=== PATIENT | female | born 1950 | race Caucasian/White ===

== ENCOUNTER 2018-01-18 14:45 | Emergency (ER) | payer OTHER, MEDICAID ==
[~2018-01-18] VITALS: Ht 167.6 cm; Wt 83.0 kg
[~2018-01-18 14:45] MED LIST: ALPRAZOLAM XR2 MG PO; CIPROFLOXACIN500 M1 PO; COZAAR 50 MG TA50 M2 PO; CYMBALTA60 MG PO; GABAPENTIN 100100 MG; HYDROXYZINE HCL10 M1 PO; HYDROXYZINE HCL25 M1 PO; IBUPROFEN 600600 M1 PO; LIPITOR 20 MG T20 M1; LIPITOR 20 MG T20 M1 PO; LISINOPRIL10 MG; METHIMAZOLE10 MG PO; NEURONTIN 300300 M1 PO; OMEPRAZOLE 20 M20 MG PO; OMEPRAZOLE20 M2; ONDANSETRON HCL4 M2 PO; PHENAZOPYRIDIN200 M2 PO; TRAMADOL 50 MG50 MG; VENLAFAXIN37.5 MG/1; XANAX 0.5 MG0.5 MG PO
[2018-01-18 16:35] LABS: HEMATOCRIT 40.2 % (37.0-47.0); HEMOGLOBIN 13.5 gm/dL (12.0-15.0); MCH 31.6 pg (26.0-34.0); MCHC 33.7 g/dL (28.0-37.0); MCV 93.8 fL (80.0-100.0); MPV 9.8 fl. (7.2-11.1); RBC 4.29 mil/uL (4.20-5.00); WBC 4.9 thou/uL (4.0-11.0)
[2018-01-18 16:43] LABS: CALCIUM 8.9 mg/dL (8.5-10.1); CREATININE 1.1 mg/dL (0.6-1.3); POTASSIUM 3.8 mmol/L (3.5-5.1)
[2018-01-18 16:47] LABS: ALBUMIN 3.5 g/dL (3.4-5.0); TOTAL BILIRUBIN 0.3 mg/dL (<0.1-1.0); TOTAL PROTEIN 7.1 g/dL (6.4-8.2)
[2018-01-18 16:58] LABS: URINE BILIRUBIN NEGATIVE (Negative); URINE BLOOD 2+ (Negative); URINE CLARITY SL CLOUDY; URINE COLOR YELLOW; URINE GLUCOSE-RANDOM NEGATIVE (Negative); URINE KETONES NEGATIVE (Negative); URINE LEUKOCYTES-REFLEX 2+ (Negative); URINE NITRITE-REFLEX NEGATIVE (Negative); URINE PROTEIN NEGATIVE (Negative); URINE SPECIFIC GRAVITY >= 1.030 (1.005-1.030); URINE UROBILINOGEN 0.2 E.U./dl (0.2-1.0)
[2018-01-18 16:59] LABS: AMP/METHAMP Negative (Negative); BARBITURATES Negative (Negative); BENZODIAZEPINES Negative (Negative); COCAINE Negative (Negative); METHADONE Negative (Negative); OPIATES Negative (Negative); PCP Negative (Negative); SQUAMOUS 0-3 Few /LPF (0-3); THC Negative (Negative); URINE WBC-REFLEX 0-5 Rare /HPF (0-5)
[2018-01-18 17:00] LABS: URINE RBC 3-10 Few /HPF (0-2)
[2018-01-18] MEDS ORDERED: XANAX XR2 MG PO (18:12)
[2018-01-18] MEDS ORDERED: KEFLEX500 M1 PO (18:12)
[2018-01-18 18:34] VITALS: BP 186/99
== END 2018-01-18 18:34 | disposition home or self-care (01) ==
LOC: M.ERS 14:45
PROVIDERS: Personal Emergency Response Attendant
DX: N39.0 Urinary tract infection, site not specified (principal); F13.239 Sedative, hypnotic or anxiolytic dependence with withdrawal, unspecified; N18.2 Chronic kidney disease, stage 2 (mild); Z88.5 Allergy status to narcotic agent; Z88.6 Allergy status to analgesic agent; Z88.2 Allergy status to sulfonamides; Z90.49 Acquired absence of other specified parts of digestive tract; Z86.73 Personal history of transient ischemic attack (TIA), and cerebral infarction without residual deficits; Z79.899 Other long term (current) drug therapy

== ENCOUNTER 2018-08-28 21:08 | Inpatient (IN) | payer OTHER, MEDICAID ==
[~2018-08-28] VITALS: Ht 167.6 cm; Wt 90.8 kg
[~2018-08-28 21:08] MED LIST changes: -COZAAR 50 MG TA50 M2 PO; +COZAAR 50 MG TA50 MG PO; +KEFLEX500 M1 PO; +OMEPRAZOLE 20 M20 M1 PO; -OMEPRAZOLE 20 M20 MG PO; +XANAX XR2 MG PO
[2018-08-28 21:09] VITALS: BP 113/68
[2018-08-28 21:38] LABS: ABSOLUTE EOSINOPHILS 0.3 thou/uL (0.0-0.7); ABSOLUTE MONOCYTES 0.5 thou/uL (0.0-1.2); ABSOLUTE NEUTROPHILS 2.6 thou/uL (1.6-8.1); BASOPHILS 0.6 %; EOSINOPHILS 5.3 %; HEMATOCRIT 38.1 % (37.0-47.0); HEMOGLOBIN 12.9 gm/dL (12.0-15.0); LYMPHOCYTES 36.4 %; MCH 31.7 pg (26.0-34.0); MCHC 33.8 g/dL (28.0-37.0); MCV 93.9 fL (80.0-100.0); MPV 9.4 fl. (7.2-11.1); NUCLEATED RBCS 0 /100WBC; PLATELET COUNT* 215 thou/uL (150-400); POLYS 47.7 %; RBC 4.06 mil/uL (4.20-5.00); RDW-CV 13.1 % (10.5-14.5); WBC 5.5 thou/uL (4.0-11.0)
[2018-08-28 21:45] LABS: ANION GAP 9 mmol/L (7-16); BUN 22 mg/dL (7-18); CALCIUM 8.5 mg/dL (8.5-10.1); CHLORIDE 105 mmol/L (98-107); CO2 28 mmol/L (21-32); CREATININE 1.2 mg/dL (0.6-1.3); GLUCOSE 104 mg/dL (70-99); SODIUM 142 mmol/L (136-145)
[2018-08-28 21:47] LABS: APTT 25.9 Seconds (25.0-31.3); INR 1.1; PROTIME 10.8 Seconds (9.20-11.50)
[2018-08-28 21:56] LABS: ALBUMIN 3.2 g/dL (3.4-5.0); ALKALINE PHOSPHATASE 99 U/L (46-116); NT-PRO BRAIN NAT PEPTIDE 80 pg/mL (<300); SGOT 16 U/L (15-37); SGPT 29 U/L (30-65); TOTAL BILIRUBIN 0.3 mg/dL (<0.1-1.0); TOTAL PROTEIN 6.6 g/dL (6.4-8.2); TROPONIN-I LEVEL <0.06 ng/mL (<0.06)
[2018-08-28 23:04] LABS: URINE BILIRUBIN NEGATIVE (Negative); URINE BLOOD NEGATIVE (Negative); URINE CLARITY CLEAR; URINE COLOR YELLOW; URINE GLUCOSE-RANDOM NEGATIVE (Negative); URINE KETONES NEGATIVE (Negative); URINE LEUKOCYTES-REFLEX 1+ (Negative); URINE NITRITE-REFLEX NEGATIVE (Negative); URINE PROTEIN NEGATIVE (Negative); URINE UROBILINOGEN 0.2 E.U./dl (0.2-1.0)
[2018-08-28 23:16] LABS: CASTS None Seen /LPF (None Seen); CRYSTALS None Seen /LPF (None Seen); SQUAMOUS 0-3 Few /LPF (0-3); URINE RBC 0-2 Rare /HPF (0-2); URINE WBC-REFLEX 0-5 Rare /HPF (0-5)
[2018-08-29] VITALS (15 sets, daily range): BP systolic 85–131; BP diastolic 44–71
[2018-08-29 05:26] LABS: ALBUMIN 3.1 g/dL (3.4-5.0); ALKALINE PHOSPHATASE 95 U/L (46-116); ANION GAP 6 mmol/L (7-16); BUN 20 mg/dL (7-18); CALCIUM 8.9 mg/dL (8.5-10.1); CHLORIDE 106 mmol/L (98-107); CHOLESTEROL 188 mg/dL (<200); CO2 30 mmol/L (21-32); CREATININE 1.1 mg/dL (0.6-1.3); GLUCOSE 104 mg/dL (70-99); HDL CHOLESTEROL 56 mg/dL (>40); LDL CHOLESTEROL 125 mg/dL (<100); POTASSIUM 4.6 mmol/L (3.5-5.1); SGOT 15 U/L (15-37); SGPT 27 U/L (30-65); SODIUM 142 mmol/L (136-145); TC:HDL 3.4 Ratio (Not establshd); TOTAL BILIRUBIN 0.3 mg/dL (<0.1-1.0); TRIGLYCERIDE 36 mg/dL (<150); VLDL 7 mg/dL (<40)
[2018-08-29 05:28] LABS: SERUM ASSESSMENT CLEAR
[2018-08-29] MEDS ORDERED: ASA81BEC PO (08:56)
[2018-08-29] MEDS ORDERED: LIPITOR40 MG PO (08:56)
[2018-08-29] MEDS ORDERED: ASPIR 8181 MG PO (19:42)
[2018-08-29] MEDS ORDERED: LIPITOR 20 MG T20 M1 PO (19:42)
[2018-08-30 00:30] VITALS: BP 113/61
[2018-08-30 02:09] LABS: GLYCOHEMOGLOBIN (HGB A1C) 5.3 % (4.8-5.6)
[2018-08-30 04:05] VITALS: BP 117/72
[2018-08-30 08:20] VITALS: BP 121/76; BP 125/74; BP 132/77
--- NOTE | 2018-08-31 12:29 | EEG ---
[address] [address] EEG STUDY REPORT Name: PANKAJ GIBSON Room: [address] IN .R.#: [id number] Admission: 08/28/18 Attend Phys: Carlos Vaughn, Discharge: 08/30/18 Date of : 50 Report #: [id number] THIS REPORT FOR: //name// CC: Ada Lowejose manuel Vaughn DATE OF SERVICE: 08/29/2018 This patient is being evaluated for an episode of syncope. The EEG is being done to evaluate the possibility of seizure. EEG was done by placing the electrodes by standard 10-20 system of electrode placement. Both referential and sequential montages were used for recording. Background activity in this patient's EEG is about 11 Hz and 50 microvolts. The patient became drowsy and that is associated with bilateral slowing. Photic stimulation was unremarkable. Throughout the record, no active epileptiform activity was noticed. IMPRESSION: This patient's EEG is unremarkable. <ELECTRONICALLY SIGNED> By: Gordy Asif MD 08/31/18 1229 1714 [id number] Asif MD /nt
--- NOTE | 2018-08-31 12:29 | CON ---
[address] [address] CONSULTATION Name: ARTHURPANKAJ S Room: [address] IN .R.#: [id number] Admission: 08/28/18 Attend Phys: Carlos Vaughn, Discharge: 08/30/18 Date of : 50 Report #: [id number] THIS REPORT FOR: //name// CC: Ada Vaughn DATE OF SERVICE: 08/29/2018 HISTORY OF PRESENT ILLNESS: This is a 67-year-old female patient who was seen by me, to look for any neurological etiology for the patient's episode of syncope. The patient gives a history that she got up, she felt dizzy. She thought she was going to pass out and then she had syncope. She does not know what her blood pressure was at that time, but here, her blood pressure is running low. There was no tonic-clonic activity and there was no postictal period. She said she had felt dizzy before when she tries to get up. It is always in upright position. She is on multiple medications, which can affect the autonomic system; those medications include duloxetine as well as pretty significant dose of Xanax. She does take her blood pressure on a regular basis; she said it usually is not low and usually is pretty good. REVIEW OF SYSTEMS: Indicates that she had some thyroid problem. She has a history of anxiety, some carotid atherosclerotic disease, prior fractures, syncope and she complained of some pain because of some kidney issues. Presently, she is not having any new eye, ENT, cardiac, respiratory, GI, , musculoskeletal, constitutional, dermatological, hematological, psychiatric, throat, allergic symptom associated with present symptomatology. PAST MEDICAL HISTORY: Positive for some dizziness. FAMILY HISTORY: Negative for early age stroke. SOCIAL HISTORY: She indicates she does not smoke. PHYSICAL EXAMINATION: Indicates the patient is alert, responsive, able to follow simple and complex command. Her speech, concentration, fund of knowledge and memory is at her baseline. Cranial nerve examination 2-12 looks unremarkable. Strength, sensation, reflexes and tones are symmetrical. There is no meningeal sign. There is no carotid bruit. Cardiac examination is unremarkable. No respiratory difficulty. Pulses are somewhat difficult to feel. Blood pressure is 122/63, it has been low. Pulse is 78. Temperature is 98.4. LABORATORY DATA: Indicate normal WBC count, normal sodium. She did have a CT angiogram of the head and neck, which appeared mostly unremarkable. IMPRESSION AND PLAN: This patient's episode is most likely [place] [address] CONSULTATION Name: PANKAJ GIBSON Room: [address]#: [id number] Admission: 08/28/18 Attend Phys: Carlos Vaughn, Discharge: 08/30/18 Date of : 50 Report #: [id number] pressure than any neurological etiology. Neurologically, she has some carotid disease and she is on statin and aspirin and she should continue that. She needs an EEG as well as MRI to complete the workup. I will get an EEG done today, but if she stays in the hospital, we will get the MRI done here; if she goes home, we will get it done as an outpatient. Main emphasis should be to evaluate and manage the systemic cause, which I will defer to Dr. Tsai. I do not believe there is any neurological etiology, especially in light of the normal workup so far and except as described above, I do not believe any further workup is necessary from neurological purpose, and the management and evaluation should be for systemic workup including blood pressure and readjusting her medication, which can affect the autonomic system, as necessary. <ELECTRONICALLY SIGNED> By: Gordy Asif MD 08/31/18 1229 1226 [id number] Asif MD /nt
--- NOTE | 2018-08-31 14:40 | EKG ---
[place] [address] ELECTROCARDIOGRAM REPORT Name: PANKAJ GIBSON Room: [address] IN [facility]#: [id number] Admission: 08/28/18 Attend Phys: Carlos Vaughn, Discharge: 08/30/18 Date of : 50 Report #: [id number] THIS REPORT FOR: //name// [facility] ED Test Date: 2018-08-28 Test Time: 21:14:13 Pat Name: PANKAJ GIBSON Department: Room: [facility] Gender: F [employer] Sales Specialist: JESSICA : 1950 Requested By: Reggie Beckford Order Number: [id number] MD: Freedom Ramirez Measurements Intervals [place] Rate: 73 P: 45 RI: 155 QRS: 25 QRSD: 149 T: 68 QT: 442 QTc: 488 Interpretive Statements Sinus rhythm Left bundle branch block Baseline wander in lead(s) V2,V6 Compared to ECG 12/06/2016 16:41:07 No significant changes Electronically Signed On 08-31-2018 14:40:11 CDT by Freedom Ramirez [email or web address] <ELECTRONICALLY SIGNED> By: Freedom Ramirez MD, FACC 08/31/18 1440 13 13 Freedom Ramirez MD, [facility] /EPI
== END 2018-08-30 11:04 | disposition home or self-care (01) | DRG 68 ==
LOC: M.ERS 21:08 → M.TBA-ER 23:20 → M.2W 23:20
PROVIDERS: Emergency Medicine Emergency Medical Services; ADMIT Family Medicine
DX: I65.29 Occlusion and stenosis of unspecified carotid artery (principal); I95.1 Orthostatic hypotension; F41.9 Anxiety disorder, unspecified; N18.2 Chronic kidney disease, stage 2 (mild); R51 Headache; I12.9 Hypertensive chronic kidney disease with stage 1 through stage 4 chronic kidney disease, or unspecified chronic kidney disease; E78.5 Hyperlipidemia, unspecified; Z79.2 Long term (current) use of antibiotics; Z86.73 Personal history of transient ischemic attack (TIA), and cerebral infarction without residual deficits; Z90.49 Acquired absence of other specified parts of digestive tract; Z79.899 Other long term (current) drug therapy; Z88.6 Allergy status to analgesic agent; Z88.2 Allergy status to sulfonamides; Z87.11 Personal history of peptic ulcer disease

== ENCOUNTER 2019-09-18 13:17 | Observation (INO) | payer OTHER | END 2019-09-20 18:31 | disposition home or self-care (01) | LOC: M.ERS 13:17 → M.TBA-ER 17:27 → M.2W 20:47 | PROVIDERS: ADMIT Internal Medicine | DX: R07.89 Other chest pain (principal); F41.9 Anxiety disorder, unspecified; F32.9 Major depressive disorder, single episode, unspecified; I44.7 Left bundle-branch block, unspecified; I10 Essential (primary) hypertension; E78.5 Hyperlipidemia, unspecified; E05.90 Thyrotoxicosis, unspecified without thyrotoxic crisis or storm; I38 Endocarditis, valve unspecified ==